=== PATIENT | female | born 1950 | race Caucasian/White ===

== ENCOUNTER 2024-07-12 11:54 | Outpatient (REF) | payer MEDICARE, SELFPAY ==
--- OUTSIDE RECORDS SUMMARY | 2024-07-12 12:08 | XMS_ITS | Clinical Summary ---
Author Organization [facility] [address] [facility] Address [address] [place] [address] Phone Care Team Providers Care Wastewater Design Engineer Name Role Phone Yulissa Wiggins MD Primary Care Provider [phone] Allergies Active Allergy Reactions Criticality Noted Date Comments Amoxicillin 05/21/2024 Other Reaction(s): Diarrhea Penicillin Rash 05/21/2024 Medications amLODIPine (NORVASC) 10 mg tablet Take 1 tablet (10 mg total) by mouth 1 (one) time each day. 5 Active hydroCHLOROthia zide (HYDRODIURIL) 25 mg tablet Take 1 tablet (25 mg total) by mouth 1 (one) time each day in the morning. 5 Active sucralfate (CARAFATE) 1 gram tablet 1 tablet (1 g total). 4 Active pantoprazole (PROTONIX) 40 mg EC tablet Take 1 tablet (40 mg total) by mouth 1 (one) time each day. 5 Active polyethylene glycol (PEG) 17 gram/dose oral powder 17 g 1 (one) time each day. Active polyethylene glycol (Golytely) 236-22.74-6.74 -5.86 gram solution Take 4L by mouth once for one dose. May substitue any PEG. Starting at 6PM the night before your procedure drink 1 8oz glasses at your own pace until you complete half of the gallon. Finish 2nd half of the gallon 5 hours before your procedure. 4000 mL 5 Active bisacodyL (DULCOLAX) 5 mg EC tablet Take 2 tablets by mouth right before beginning bowel prep. See instructions provided by the office 2 tablet 5 Active polyethylene glycol (Golytely) 236-22.74-6.74 -5.86 gram solution Take 4L by mouth once for one dose. May substitue any PEG. Starting at 6PM the night before your procedure drink 1 8oz glasses at your own pace until you complete half of the gallon. Finish 2nd half of the gallon 5 hours before your procedure. 4000 mL Active bisacodyL (DULCOLAX) 5 mg EC tablet Take 2 tablets by mouth right before beginning bowel prep. See instructions provided by the office 2 tablet Active Active Problems Problem Noted Date Diagnosed Date Hypertension 05/21/2024 GERD (gastroesophageal reflux disease) Overview (05/21/2024): Barium swallow postitive for moderate sized hiatal hernia and moderate esophageal dysmotility Assessment & Plan (05/21/2024 5:22 PM EDT): Uncontrolled and refractory to PPI use. Continue pantoprazole 40mg daily, recommended increase to BID use. Patient would like to hold off at this time. Continue medications as directed, use pepcid as needed. Add-on EGD for further evaluation. Depression 05/21/2024 Hard of hearing 05/21/2024 Anal cancer (CMS/[facility] V24, CMS/[facility] V28) Overview (05/21/2024): Diagnosed in 50s S/p resection with Dr. Willams Encounters Date Type Department Care Team Description 05/23/2024 Telephone Gastroenterology - [address] [place] [phone] Reji Hunag MD 05/21/2024 1:00 PM EDT Consult Gastroenterology - [address] [phone] Sofie Lilly PA Gastroesophageal reflux disease with esophagitis, unspecified whether hemorrhage (Primary Dx); Colon cancer screening; Pharyngoesophageal dysphagia; Irritable bowel syndrome with both constipation and diarrhea 04/13/2024 Telephone Gastroenterology - [address] [place] [phone] William Urias MD information needed from Last 3 Months Surgical History Surgery Date Site/Laterality Comments HYSTERECTOMY BREAST BIOPSY Family History Medical History Relation Name Comments Bone cancer Maternal Grandparent mi Maternal Grandparent Hypertension Mother Mental illness Mother Stomach cancer Mother Colon cancer Neg Hx Relation Name Status Comments Maternal Grandparent Mother Social History Tobacco Use Types Packs/Day Years Used Date Smoking Tobacco: Former Cigarettes Smokeless Tobacco: Former Tobacco Cessation:Counseling Given: Not Answered Alcohol Use Standard Drinks/Week Comments Yes 0 (1 standard drink = 0.6 oz pur e alcohol) Comments Unknown Sex and Gender Information Value Date Recorded Sex Assigned at Not on file Legal Sex Female 6:31 AM EST Gender Identity Not on file Sexual Orientation Not on file Obstetrics History Last Filed Vital Signs Vital Sign Reading Time Taken Comments Blood Pressure - - Pulse - - Temperature - - Respiratory Rate - - Oxygen Saturation - - Inhaled Oxygen Concentration - - Weight 64.4 kg (142 lb) 05/21/2024 1:13 PM EDT Height 157.5 cm (5' 2 ) 05/21/2024 1:13 PM EDT Body Mass Index 25.97 05/21/2024 1:13 PM EDT Plan of Treatment Upcoming Encounters Date Type Department Care Team (Late st Contact Info) Description 07/24/2024 1:[address] [facility] [address] [place] [phone] Reji Huang MD [address] [address] 08/06/2024 1:00 PM EDT Office Visit Gastroenterology - 299 [facility] [address] [phone] Sofie Lilly PA [address] [id number] Health Maintenance Due Date Last Done Comments Breast Cancer Screening 1950 DTaP,Tdap,and Td Vaccines (1 - Tdap) 1969 Pneumococcal Vaccine: 50+ Years (1 of 2 - PCV) 1968 Zoster Vaccines (1 of 2) 1968 COVID-19 Vaccine (2 - Modern a risk series) 06/24/2020 05/27/2020 Cholesterol Screening (Lipid Panel) 01/17/2022 Colorectal Cancer Screening: Colonoscopy 01/17/2022 Depression Screening 01/17/2022 Falls Risk Assessment 01/17/2022 Hepatitis C Screening 01/17/2022 Osteoporosis Screening (Bone Density Screening) 01/17/2022 Social Influencers of Health Screening 01/17/2022 Hypertension/CHF/CAD Annual BMP Blood Test 05/21/2024 05/28/2003 Influenza Vaccine (Season Ended) 2024 12/11/2021, 01/09/2020, 01/01/2015 RSV Immunization Adult Patients (1 - 1-dose 75+ series) 2024 HIB Vaccines Aged Out No longer eligi ble based on patient's age to complete this topic HPV Vaccines Aged Out No longer eligi ble based on patient's age to complete this topic Hepatitis A Vaccines Aged Out No long er eligible based on patient's age to complete this topic Hepatitis B Vaccines Aged Out No long er eligible based on patient's age to complete this topic IPV Vaccines Aged Out No longer eligi ble based on patient's age to complete this topic MMR Vaccines Aged Out No longer eligi ble based on patient's age to complete this topic Meningococcal ACWY Vaccine Aged Out N o longer eligible based on patient's age to complete this topic Meningococcal B Vaccine Aged Out No l onger eligible based on patient's age to complete this topic RSV Immunization Patients Under 20 months Aged Out No longer eligible b ased on patient's age to complete this topic Varicella Vaccines Aged Out No longer eligible based on patient's age to complete this topic Procedures Procedure Name Priority Date/Time Associated Diagnosis Comments ANNUAL BMP BLOOD TEST Routine 05/28/2003 from Last 3 Months or Most Recently Relevant to Health Maintenance Results * Annual BMP Blood Test (05/28/2003) Annual BMP Blood Test Abstracted us Historical Provider HEALTH MAINTENANCE Final Result from Last 3 Months or Most Recently Relevant to Health Maintenance Insurance MEDICARE [facility] Care Teams Wastewater Design Engineer Relationship Specialty Start Date End Date Yulissa Wiggins MD [address] [place] [address] [place] [address] PCP - General Internal Medicine 04/13/24
[2024-07-12 13:52] LABS: Alanine Aminotransferase 41 U/L (0-31); Albumin Level 4.6 g/dL (3.5-5.0); Alkaline Phosphatase 69 U/L (39-117); Anion Gap 14 (12-20); Aspartate Amino Transferase 31 U/L (5-31); Bilirubin Total 0.3 mg/dL (0.0-1.0); Blood Urea Nitrogen 20 mg/dL (9-16); Calcium 10.2 mg/dL (8.4-10.2); Carbon Dioxide 29 mmol/L (22-29); Chloride 105 mmol/L (96-108); Cholesterol 248 mg/dL (<200); Estimated Glomerular Filt Rate > 60; Glucose Random 106 mg/dL (60-115); HDL Cholesterol 66 mg/dL (>40); LDL Cholesterol Calculated 154 mg/dL (<100); Potassium 3.5 mmol/L (3.3-5.1); Sodium 144 mmol/L (135-145); Total Protein 7.4 g/dL (6.5-8.0); Triglycerides 143 mg/dL (<150)
[2024-07-12 14:00] LABS: Thyroid Stimulating Hormone 1.14 uIU/mL (0.32-4.0)
== END 2024-07-12 11:55 | disposition home or self-care (01) ==
LOC: HO.10HDL 11:54
PROVIDERS: Visit Provider Internal Medicine
DX: E78.00 Pure hypercholesterolemia, unspecified (principal); F22 Delusional disorders; I10 Essential (primary) hypertension; K44.9 Diaphragmatic hernia without obstruction or gangrene; R13.10 Dysphagia, unspecified; R53.83 Other fatigue
CPT/HCPCS: 36415; 80053; 80061; 84443